=== PATIENT | female | born 1985 | race Hispanic/Latino ===

== ENCOUNTER 2021-05-03 11:54 | Emergency (ER) | payer BC ==
[~2021-05-03] VITALS: Ht 157.5 cm; Wt 93.0 kg
[2021-05-03] MEDS ORDERED: KETOROLAC TROMETHAMINE 30 MG/ML VIAL IV STA (12:21)
[2021-05-03] MEDS ORDERED: IBUPROFEN600 MG PO (13:43)
== END 2021-05-03 14:16 | disposition home or self-care (01) ==
LOC: FSED 11:57
DX: R09.1 Pleurisy (principal); R07.89 Other chest pain
CPT/HCPCS: 71045; 80053; 81003; 85025; 93005; 96374; 99284; J1885

== ENCOUNTER 2021-09-02 11:12 | Emergency (ER) | payer BC ==
[~2021-09-02] VITALS: Ht 157.5 cm; Wt 90.7 kg
[~2021-09-02 11:12] MED LIST: IBUPROFEN600 MG PO
[2021-09-02] MEDS ORDERED: GUAIFEN-CODEINE10 ML PO ×2 (13:43→13:46)
[2021-09-02] MEDS ORDERED: VENTOLIN HFA18 GM INH ×2 (13:44→13:45)
== END 2021-09-02 14:03 | disposition home or self-care (01) ==
LOC: FSED 11:24
DX: R05.9 Cough, unspecified (principal); J10.1 Influenza due to other identified influenza virus with other respiratory manifestations; B34.9 Viral infection, unspecified; J98.01 Acute bronchospasm; Z87.442 Personal history of urinary calculi
CPT/HCPCS: 71046; 81003; 81025; 99283